=== PATIENT | female | born 1965 ===

== ENCOUNTER 2017-01-17 15:39 | Emergency (ER) | payer OTHER ==
--- NOTE | 2017-01-17 16:54 | C.PDOC ---
History Of Present Illness 51 year old patient presents to the ED complaining of right lower back pain radiating to her right leg. Patient reports she has a known history of sciatica and today's symptoms are similar to prior episodes. Patient was seen here 2 days ago, was given "an injection" that gave her relief. However when she went home, the medications did not help the pain. Patient denies any falls/injuries , fever, dysuria/hematuria, urinary retention, bowel/bladder incontinence, or sensory changes in her legs. Time Seen by Provider: 01/17/17 15:55 Chief Complaint (Nursing): Back Pain History Per: Patient History/Exam Limitations: no limitations Onset/Duration Of Symptoms: Persistent (2 days) Current Symptoms Are (Timing): Still Present Quality Of Discomfort: "Pain" Severity: Mild Previous Symptoms: Back Pain, Chronic Pain Associated Symptoms: None Additional History Per: Prior Records Past Medical History Reviewed: Historical Data, Nursing Documentation, Vital Signs Vital Signs: Last Vital Signs Temp 98.0 F 01/17/17 17:03 Pulse 56 L 01/17/17 17:03 Resp 16 01/17/17 17:03 BP 101/67 01/17/17 17:03 Pulse Ox 98 01/17/17 18:58 - Medical History PMH: Anxiety, Asthma, Bronchitis, Depression, Migraine, Pneumonia - [facility] Procedures INSPECTION OF BLADDER, ENDO (12/05/15) RESECTION OF BI FALLOPIAN TUBE, VIA OPENING W PERC ENDO (12/05/15) RESECTION OF BILATERAL OVARIES, VIA OPENING W PERC ENDO (12/05/15) RESECTION OF UTERUS, VIA OPENING W PERC ENDO (12/05/15) Family History: States: No Known Family Hx - Social History Hx Tobacco Use: No Hx Alcohol Use: No Hx Substance Use: No - Immunization History Hx Tetanus Toxoid Vaccination: No Hx Influenza Vaccination: No Hx Pneumococcal Vaccination: No Review Of Systems Except As Marked, All Systems Reviewed And Found Negative. Constitutional: Negative for: Fever Cardiovascular: Negative for: Chest Pain, Palpitations Respiratory: Negative for: Cough, Shortness of Breath Genitourinary: Negative for: Dysuria, Incontinence, Hematuria, Other (retention) Skin: Negative for: Rash Neurological: Negative for: Weakness, Numbness Physical Exam - Physical Exam Appears: Non-toxic, Other (mild to moderate pain) Skin: Warm, Dry, No Rash Oral Mucosa: Moist Cardiovascular: Rhythm Regular Respiratory: Normal Breath Sounds, No Rales, No Rhonchi, No Wheezing Back: No CVA Tenderness, No Vertebral Tenderness, No Decreased ROM, Other ( right lumbar and upper gluteal area: mild tenderness to palpation (-)swelling (- )erythema ) Extremity: Normal ROM, No Tenderness, No Pedal Edema, No Calf Tenderness, Capillary Refill (<2 seconds all digits ), No Deformity, No Swelling Pulses: Left Dorsalis Pedis: Normal, Right Dorsalis Pedis: Normal Neurological/Psych: Oriented x3, Normal Motor, Normal Sensation Gait: Steady ED Course And Treatment O2 Sat by Pulse Oximetry: 98 (room air) Pulse Ox Interpretation: Normal Progress Note: Patient given IM Toradol and PO Flexeril and Prednisone. Reevaluation Time: 16:55 Reassessment Condition: Improved (On reassessment, patient is resting comfortably and states her pain has improved. She is ambulating normally in the ED. Patient given rx for prednisone (already has nsaid/muscle relaxants at home), and was instructed to follow up with PMD/clinic in 1-2 days. She understands she should return to ED if symptoms worsen.) Disposition Counseled Patient/Family Regarding: Diagnosis, Need For Followup, Rx Given - Disposition Referrals: [facility] [Outside] Disposition: HOME/ ROUTINE Disposition Time: 16:55 Condition: STABLE Additional Instructions: FOLLOW UP WITH YOUR DOCTOR IN 1-2 DAYS USE STEROIDS DIRECTED, AND ALSO USE MEDICATIONS GIVEN TO YOU TWO DAYS AGO RETURN TO EMERGENCY ROOM IF SYMPTOMS WORSEN SEGUIMIENTO CON PARKER MDICO EN 1-2 MELGAR UTILICE LOS ESTEROIDES SEGN LO DIRIGIDO, Y UTILICE TAMBIN LOS MEDICAMENTOS DADOS A USTEDES DOS AOS DEVUELVA A LA ARMIDA DE EMERGENCIA SI LOS SNTOMAS EMPEORARAN Prescriptions: predniSONE [predniSONE Tab] 40 mg PO DAILY #6 tab Instructions: Sciatica (ED) Print Language: HEBREW - POA Present On Arrival: None - Clinical Impression Clinical Impression: Sciatica, right side - Scribe Statement The provider has reviewed the documentation as recorded by the Scribowen Parker Provider Attestation: All medical record entries made by the Scribe were at my direction and personally dictated by me. I have reviewed the chart and agree that the record accurately reflects my personal performance of the history, physical exam, medical decision making, and the department course for this patient. I have also personally directed, reviewed, and agree with the discharge instructions and disposition.
[2017-01-17 17:04] VITALS: BP 101/67; PULSE 56; RESP 16; TEMP 98
[2017-01-17 17:17] VITALS: O2SAT 98
== END 2017-01-17 17:05 | disposition home or self-care (01) ==
LOC: C.ER 15:39
DX: M54.31 Sciatica, right side (principal)
CPT/HCPCS: 96372; 99284; J1885

== ENCOUNTER 2017-06-07 14:35 | Emergency (ER) | payer OTHER ==
[2017-06-07] MEDS ORDERED: Lidocaine 5% Patch TD STA (16:09)
[2017-06-07] MEDS ORDERED: Oxycodone/Acetaminophen 5/325 mg Tab PO STA (16:09)
[2017-06-07] MEDS ORDERED: Oxycodone/Acetaminophen 5/325 mg Tab ONE (16:23)
[2017-06-07] MEDS ORDERED: Lidocaine 5% Patch TD ONE (16:23)
[2017-06-07 16:53] VITALS: BP 113/70; PULSE 58; RESP 18; TEMP 98.1; O2SAT 99
--- NOTE | 2017-06-07 17:24 | C.PDOC ---
History Of Present Illness Pauly Vizcarra is a 51 year old female, with a past history of intermittent sciatica, who presents to the emergency department complaining of right sided pain associated with tingling onset for 3 days. Patient reports exacerbating pain radiating from the right side of the back to the right side of buttocks and down her leg. She denies any trauma, fever, chills, nausea, vomit, and abdominal pain. PMD: Erica Chapa I Chief Complaint (Nursing): Lower Extremity Problem/Injury History Per: Patient History/Exam Limitations: no limitations Onset/Duration Of Symptoms: Days (3) Current Symptoms Are (Timing): Still Present Severity: Mild Past Medical History Reviewed: Historical Data, Nursing Documentation, Vital Signs Vital Signs: Last Vital Signs Temp 98.1 F 06/07/17 16:38 Pulse 58 L 06/07/17 16:38 Resp 18 06/07/17 16:38 BP 113/70 06/07/17 16:38 Pulse Ox 99 06/07/17 19:14 - Medical History PMH: Anxiety, Asthma, Bronchitis, Depression, Migraine, Pneumonia Denies: Chronic Kidney Disease - [facility] Procedures INSPECTION OF BLADDER, ENDO (12/05/15) RESECTION OF BI FALLOPIAN TUBE, VIA OPENING W PERC ENDO (12/05/15) RESECTION OF BILATERAL OVARIES, VIA OPENING W PERC ENDO (12/05/15) RESECTION OF UTERUS, VIA OPENING W PERC ENDO (12/05/15) Family History: States: Unknown Family Hx - Social History Hx Tobacco Use: No Hx Alcohol Use: No Hx Substance Use: No - Immunization History Hx Tetanus Toxoid Vaccination: No Hx Influenza Vaccination: No Hx Pneumococcal Vaccination: No Review Of Systems Except As Marked, All Systems Reviewed And Found Negative. Constitutional: Negative for: Fever, Chills Gastrointestinal: Negative for: Nausea, Vomiting, Abdominal Pain Musculoskeletal: Positive for: Back Pain (right side radiating to right side of buttocks and down her right leg), Leg Pain (right) Physical Exam - Physical Exam Appears: Non-toxic, No Acute Distress Skin: Normal Color, Warm, Dry Head: Atraumatic, Normacephalic Eye(s): bilateral: Normal Inspection, PERRL, EOMI Ear(s): Bilateral: Normal Nose: Normal Throat: Normal Neck: Normal, Normal ROM Cardiovascular: Rhythm Regular, No Murmur Respiratory: Normal Breath Sounds Back: Paraspinal Tenderness (right buttock posterior thigh), Straight Leg Raising (positive at 40 degrees) Neurological/Psych: Oriented x3, Normal Speech, Normal Cognition, Normal Motor, Normal Sensation ED Course And Treatment O2 Sat by Pulse Oximetry: 99 (RA) Pulse Ox Interpretation: Normal Progress Note: On re-evaluation, patient feels better, ambulatory in ED, wants to be d/c home. Family is at bedside and will drive patient home. Medical Decision Making Medical Decision Making: Initial Plan: --Lidoderm 1 ea TD --Percocet 5/325 mg Tab PO --Toradol 60 mg IM --Valium 5 mg PO Scribe Attestation The documentation for this encounter was entered by Jarrod Wiggins acting as a scribe for Tanisha MCLCENDON All medical record entries made by the Scribe were at my direction and personally dictated by me. I have reviewed the chart and agree that the record accurately reflects my personal performance of the history, physical exam, medical decision making, and the department course for this patient. I have also personally directed, reviewed, and agree with the discharge instructions and disposition. Disposition - Disposition Disposition: HOME/ ROUTINE Disposition Time: 17:20 Condition: STABLE Additional Instructions: Follow up with PMD within 1-2 days. Return to ED if feel worse. Prescriptions: Lidocaine 5% [Lidoderm] 1 patch TP DAILY #30 patch Ibuprofen [Motrin Tab] 600 mg PO Q8 #30 tab oxyCODONE/Acetaminophen [Percocet 5/325 mg Tab] 1 tab PO QID PRN #20 tab PRN Reason: Pain diaZEpam [Valium] 2 mg PO TID #15 tab Instructions: Sciatica (ED) Forms: [employer] (Romanian) - Clinical Impression Clinical Impression: Sciatica
== END 2017-06-07 17:32 | disposition home or self-care (01) ==
LOC: C.ER 14:35
DX: M54.30 Sciatica, unspecified side (principal)
CPT/HCPCS: 96372; 99284; J1885

== ENCOUNTER 2018-04-12 22:46 | Emergency (ER) | payer MEDICAID, OTHER ==
[2018-04-12] MEDS ORDERED: Sodium Chloride 0.9% 1,000 ML IV ONE (23:12)
--- NOTE | 2018-04-12 23:12 | C.PDOC ---
History Of Present Illness 52-year-old female presents to the ED with complaints of suprapubic pain, dysuria, and hematuria, worsening over the past 2 days. Pain radiates into the right groin. Otherwise patient denies any fever, chills, nausea, diarrhea, or vomiting. She reports 5/10 pain. Time Seen by Provider: 04/12/18 23:12 Chief Complaint (Nursing): Female Genitourinary History Per: Patient History/Exam Limitations: no limitations Onset/Duration Of Symptoms: Days Current Symptoms Are (Timing): Still Present Severity: Moderate Pain Scale Rating Of: 5 Quality Of Discomfort: "Pain" Associated Symptoms: Urinary Symptoms. denies: Fever, Chills, Nausea, Vomiting Alleviating Factors: None Recent travel outside of the [place]: No Additional History Per: Patient Abnormal Vaginal Bleeding: No Past Medical History Reviewed: Historical Data, Nursing Documentation, Vital Signs Vital Signs: Last Vital Signs Temp 100.1 F H 04/12/18 22:57 Pulse 82 04/12/18 22:57 Resp 18 04/12/18 22:57 BP 134/86 04/12/18 22:57 Pulse Ox 98 04/12/18 23:22 - Medical History PMH: Anxiety, Asthma, Bronchitis, Depression, Migraine, Pneumonia Denies: Chronic Kidney Disease Other Surgeries: Hysterectomy, Parathyroidectomy - [facility] Procedures INSPECTION OF BLADDER, ENDO (12/05/15) RESECTION OF BI FALLOPIAN TUBE, VIA OPENING W PERC ENDO (12/05/15) RESECTION OF BILATERAL OVARIES, VIA OPENING W PERC ENDO (12/05/15) RESECTION OF UTERUS, VIA OPENING W PERC ENDO (12/05/15) Family History: States: Unknown Family Hx - Social History Hx Tobacco Use: No Hx Alcohol Use: No Hx Substance Use: Yes (MARIJUANA) - Immunization History Hx Tetanus Toxoid Vaccination: No Hx Influenza Vaccination: No Hx Pneumococcal Vaccination: No Review Of Systems Constitutional: Negative for: Fever, Chills Gastrointestinal: Positive for: Abdominal Pain (suprapubic). Negative for: Nausea, Vomiting, Diarrhea Genitourinary: Positive for: Dysuria, Hematuria. Negative for: Frequency, Incontinence, Vaginal Bleeding Physical Exam - Physical Exam Appears: Non-toxic, No Acute Distress Skin: Warm, Dry Head: Normacephalic Eye(s): bilateral: Normal Inspection Oral Mucosa: Moist Neck: Trachea Midline, Supple Chest: Symmetrical Cardiovascular: Rhythm Regular Respiratory: No Rales, No Rhonchi, No Wheezing Gastrointestinal/Abdominal: Soft, Tenderness (to the suprapubic region), No Guarding, No Rebound Back: Normal Inspection Extremity: Normal ROM Extremity: Bilateral: Atraumatic, Normal ROM Pulses: Left Dorsalis Pedis: Normal, Right Dorsalis Pedis: Normal Neurological/Psych: Oriented x3 Gait: Steady ED Course And Treatment - Laboratory Results Result Diagrams: 04/12/18 23:28 04/12/18 23:28 O2 Sat by Pulse Oximetry: 98 (RA) Pulse Ox Interpretation: Normal Progress Note: Blood work and urine sent. Administered 1L of IV fluids. Against Medical Advice - AMA Patient Left Against Medical Advice: The patient declines admission to the hospital and wishes to leave the Emergency Department. This action is against my medical advice. This decision was made with informed refusal. The patient was told that admission to the hospital is necessary. Explanation of the reasons why were discussed. The risks of leaving were explained to the patient and include, but are not limited to, worsening of known or currently unknown conditions, permanent disability and from undiagnosed or untreated conditions. The patient has the capacity to make this informed decision and understands my explanation of the current medical problem and risks of leaving. The patient voluntarily accepts these risks and signed an AMA form documenting our conversation. The patient was given the opportunity to ask questions and reconsider. The patient was encouraged to return to the Emergency Department at any time for further care. Disposition Counseled Patient/Family Regarding: Studies Performed, Diagnosis, Need For Followup, Rx Given - Disposition Disposition: AGAINST MEDICAL ADVICE Disposition Time: 23:12 Condition: FAIR Additional Instructions: Please return anytime if symptoms recur Prescriptions: Nitrofurantoin Macrocrystals [Macrobid] 1 cap PO BID #14 cap Ondansetron ODT [Zofran ODT] 1 odt PO BID PRN #6 odt PRN Reason: Nausea/Vomiting Instructions: Urinary Tract Infections in Adults, Kidney Infection Forms: [facility] (Kinyarwanda) Print Language: MACEDONIAN - Clinical Impression Clinical Impression: Pyelonephritis - Scribe Statement The provider has reviewed the documentation as recorded by the Scribe (Gretel Dinh) Provider Attestation: All medical record entries made by the Scribe were at my direction and personally dictated by me. I have reviewed the chart and agree that the record accurately reflects my personal performance of the history, physical exam, medical decision making, and the department course for this patient. I have also personally directed, reviewed, and agree with the discharge instructions and disposition.
[2018-04-12 23:23] LABS: SQUAMOUS EPITHIAL 15 /hpf (0-5); URINE BACTERIA OCC (<OCC); WBC CLUMPS MANY /hpf
[2018-04-12 23:24] LABS: URINE BILIRUBIN SMALL (NEGATIVE); URINE CLARITY Turbid (Clear); URINE COLOR RED (YELLOW); URINE GLUCOSE (UA) NEGATIVE (Normal)
[2018-04-12 23:25] LABS: URINE BLOOD LARGE (NEGATIVE); URINE PROTEIN >=300 mg/dL (NEGATIVE); URINE UROBILINOGEN 0.2 mg/dL (0.2-1.0)
[2018-04-12 23:26] LABS: URINE LEUKOCYTE ESTERASE LARGE Leu/uL (Negative)
[2018-04-12] MEDS ORDERED: Piperacillin/Tazobact 3.375 gm 100 ML IVPB STA (23:27)
[2018-04-12 23:30] LABS: BASO # 0.1 K/uL (0.0-0.2); BASO % 0.6 % (0.0-2.0); EOS # 0.3 K/uL (0.0-0.7); HEMOGLOBIN 13.1 g/dL (11.0-16.0); LYMPH # 1.8 K/uL (1.0-4.3); LYMPH % 13.3 % (20.0-40.0); MEAN CORPUSCULAR HEMOGLOBIN 30.3 pg (27.0-31.0); MEAN CORPUSCULAR HGB CONC 33.7 g/dL (33.0-37.0); MEAN PLATELET VOLUME 8.1 fL (7.2-11.7); MONO # 0.6 K/uL (0.0-0.8); MONO % 4.7 % (0.0-10.0); NEUT # 10.9 K/uL (1.8-7.0); NEUT % 79.4 % (50.0-75.0); RBC 4.33 Mil/uL (3.80-5.20); RED CELL DISTRIBUTION WIDTH 13.5 % (11.5-14.5); WHITE BLOOD COUNT 13.7 K/uL (4.8-10.8)
[2018-04-12 23:31] LABS: MEAN CELL VOLUME 89.9 fL (81.0-99.0)
[2018-04-12] MEDS ORDERED: Piperacillin/Tazobact 3.375 gm 100 ML IVPB ONE (23:35)
[2018-04-12 23:38] LABS: INR 1.2; PROTHROMBIN TIME 12.6 SECONDS (9.7-12.2)
[2018-04-12 23:43] LABS: ALB/GLOB RATIO 1.4 (1.0-2.1); ALT/SGPT 23 U/L (9-52); AST/SGOT 20 U/L (14-36); BLOOD UREA NITROGEN 22 mg/dL (7-17); CALCIUM 9.5 mg/dl (8.6-10.4); GFR AFRICAN-AMERICAN > 60; GFR NON-AFRICAN AMERICAN 58; LIPASE 79 U/L (23-300)
[2018-04-13] MEDS ORDERED: cefTRIAXone IV 1 gm in Dextros 50 ML IVPB ONE (03:06)
[2018-04-13 03:26] VITALS: BP 112/67; PULSE 62; RESP 16; TEMP 98.1; O2SAT 100
--- NOTE | 2018-04-13 07:17 | CT ---
Date of service: 04/13/2018 PROCEDURE: CT Abdomen and Pelvis without intravenous contrast HISTORY: abd pain COMPARISON: Comparison is made with 07/01/2015 TECHNIQUE: Axial and reformatted coronal and sagittal CT images of the abdomen and pelvis were obtained without IV or oral contrast administration.. Contrast dose: 0 Radiation dose: Total exam DLP = 579.5 mGy-cm. This CT exam was performed using one or more of the following dose reduction techniques: Automated exposure control, adjustment of the mA and/or kV according to patient size, and/or use of iterative reconstruction technique. FINDINGS: LOWER THORAX: Unremarkable. LIVER: Unremarkable. No gross lesion or ductal dilatation. GALLBLADDER AND BILE DUCTS: Unremarkable. PANCREAS: Unremarkable. No gross lesion or ductal dilatation. SPLEEN: Unremarkable. ADRENALS: Unremarkable. No mass. KIDNEYS AND URETERS: Unremarkable. No hydronephrosis. No solid mass. VASCULATURE: Unremarkable. No aortic aneurysm. BOWEL: Unremarkable. No obstruction. No gross mural thickening. Mild constipation is noted. APPENDIX: Unremarkable. Normal appendix. PERITONEUM: Unremarkable. No free fluid. No free air. LYMPH NODES: Unremarkable. No enlarged lymph nodes. BLADDER: Unremarkable. REPRODUCTIVE: Unremarkable. BONES: No acute fracture. OTHER FINDINGS: None. IMPRESSION: No evidence of nephrolithiasis or hydronephrosis. No CT evidence of cholecystitis pancreatitis or appendicitis. Preliminary report was submitted by [facility].
== END 2018-04-13 03:30 | disposition left against medical advice (07) ==
LOC: SUPCPDRO 22:46 → C.ER 22:46
DX: N12 Tubulo-interstitial nephritis, not specified as acute or chronic (principal)
CPT/HCPCS: 74176; 80053; 81001; 83690; 84703; 85025; 85610; 85730; 96365; 96375; 99285; J2270; J2543; J2765; J7030